=== PATIENT | male | born 1960 | race African-American/Black ===

== ENCOUNTER 2018-04-26 12:48 | Inpatient (IN) | payer SELFPAY ==
[~2018-04-26] VITALS: Ht 175.3 cm; Wt 96.6 kg
[~2018-04-26 12:48] MED LIST: ALLO300T2 PO; ATOR20TA65 PO; FURO40TA5 PO; RANI300C8 PO
[2018-04-26 14:13] LABS: BASOPHILS % 0.7 % (0.0-2.0); EOSINOPHILS % 3.6 % (0.0-5.0); HEMATOCRIT. 47.6 % (42.0-52.0); HEMOGLOBIN. 16.4 g/dL (14.0-18.0); LYMPHOCYTES % 21.9 % (20.0-50.0); MEAN CORPUSCULAR HEMOGLOBIN 32.8 pg (28.0-32.0); MEAN CORPUSCULAR VOLUME 95.2 fL (80.0-94.0); MEAN PLATELET VOLUME 8.7 fl (7.4-10.4); MONOCYTES % 5.8 % (2.0-8.0); PLATELET 156 x1000/uL (130-400); RED BLOOD CELL COUNT 4.99 mill/uL (4.7-6.1); RED CELL DISTRIBUTION WIDTH 14.4 % (11.6-14.6)
[2018-04-26 14:19] LABS: CHLORIDE 108 mEq/L (98-107)
[2018-04-26] MEDS ORDERED: ASPIRIN 81MG TABLET PO ONE (14:30)
[2018-04-26 15:24] LABS: CLARITY URINE CLEAR (CLEAR); COLOR URINE DARK YELLOW (YELLOW); KETONES URINE TRACE (NEGATIVE); LEUKOCYTE ESTERASE URINE NEGATIVE (NEGATIVE); NITRITE URINE NEGATIVE (NEGATIVE); OCCULT BLOOD URINE NEGATIVE (NEGATIVE); PROTEIN URINE NEGATIVE (NEGATIVE); SPECIFIC GRAVITY URINE 1.027 (1.005-1.030)
[2018-04-26 15:25] LABS: PROTHROMBIN TIME 10.5 sec (9.4-11.6)
[2018-04-26 20:00] VITALS: BP 129/75
[2018-04-26 20:17] VITALS: BP 129/75
[2018-04-26] MEDS ORDERED: MAGNESIUM HYDROXIDE 400MG/5ML 30ML UDC PO PRN (20:30)
[2018-04-26] MEDS ORDERED: ACETAMINOPHEN 325MG TABLET PO PRN (20:30)
[2018-04-26] MEDS ORDERED: IPRATROPIUM/ALBUTEROL 0.5-3(2.5)MG/3ML NEB INH PRN (20:30)
[2018-04-26] MEDS ORDERED: MAGNESIUM/ALUMINUM HYDROXIDE/SIMETHICONE 30ML UDC PO PRN (20:30)
[2018-04-26] MEDS ORDERED: REGADENOSON 0.4 MG/5 ML IV SCH (20:30)
[2018-04-26] MEDS ORDERED: ONDANSETRON HCL 4MG/2ML VIAL IV PRN (20:30)
[2018-04-26] MEDS ORDERED: TEMAZEPAM 15MG CAPSULE PO PRN (20:30)
[2018-04-26] MEDS ORDERED: DIPHENHYDRAMINE 50MG/ML VIAL IV PRN (20:30)
[2018-04-26] MEDS: FAMOTIDINE 20MG TABLET PO SCH (21:20)
[2018-04-26] MEDS: SODIUM CHLORIDE 0.9% INJ 3ML FLUSH IVF SCH (21:24)
[2018-04-27] VITALS: BP 138/69
[2018-04-27] MEDS: SODIUM CHLORIDE 0.9% INJ 3ML FLUSH IVF SCH ×2 (04:58→13:19)
[2018-04-27 08:00] VITALS: BP 140/80
[2018-04-27] MEDS ORDERED: REGADENOSON 0.4 MG/5 ML IV ONE (08:37)
[2018-04-27] MEDS ORDERED: ALLOPURINOL 300 MG TABLET PO SCH (09:00)
[2018-04-27] MEDS: FAMOTIDINE 20MG TABLET PO SCH (10:16)
[2018-04-27] MEDS ORDERED: ASPIRIN 81MG EC TABLET PO SCH (11:00)
[2018-04-27] MEDS ORDERED: CLONIDINE 0.2MG TABLET PO PRN (11:00)
[2018-04-27 12:00] VITALS: BP 121/73
[2018-04-27 15:28] VITALS: BP 121/73
== END 2018-04-27 17:00 | disposition home or self-care (01) | DRG 198 ==
LOC: ER 12:48 → EDBEDREQ 14:34 → ENRESERV 16:30 → 5WST 18:33
PROVIDERS: ADMIT Internal Medicine; ATTEND Internal Medicine
DX: R07.89 Other chest pain (principal); I25.10 Atherosclerotic heart disease of native coronary artery without angina pectoris; I10 Essential (primary) hypertension; E78.00 Pure hypercholesterolemia, unspecified; F17.200 Nicotine dependence, unspecified, uncomplicated; M10.9 Gout, unspecified; Z79.899 Other long term (current) drug therapy
CPT/HCPCS: 36415; 71045; 78452; 80053; 81003; 83880; 84484; 85025; 85610; 93005; 93017; 99285; A9500; J2785

== ENCOUNTER 2018-11-07 12:49 | Emergency (ER) | payer MEDICAID ==
[~2018-11-07] VITALS: Ht 172.7 cm; Wt 96.0 kg
[~2018-11-07 12:49] MED LIST changes: -FURO40TA5 PO; -RANI300C8 PO
[2018-11-07] MEDS ORDERED: KETOROLAC 15MG/ML VIAL IM ONE (17:15)
[2018-11-07 19:04] VITALS: BP 124/82
== END 2018-11-07 19:05 | disposition home or self-care (01) ==
LOC: ER 14:01
DX: M54.5 Low back pain (principal); E78.00 Pure hypercholesterolemia, unspecified; I10 Essential (primary) hypertension; F17.200 Nicotine dependence, unspecified, uncomplicated; M85.80 Other specified disorders of bone density and structure, unspecified site; W01.0XXA Fall on same level from slipping, tripping and stumbling without subsequent striking against object, initial encounter; Y93.9 Activity, unspecified; Y92.9 Unspecified place or not applicable
CPT/HCPCS: 72100; 96372; 99283; J1885

== ENCOUNTER 2019-03-15 16:32 | Emergency (ER) | payer MEDICAID ==
[~2019-03-15] VITALS: Ht 167.6 cm; Wt 94.0 kg
[2019-03-15 16:34] VITALS: BP 123/75
== END 2019-03-15 17:15 | disposition home or self-care (01) ==
LOC: ER 16:32
DX: I10 Essential (primary) hypertension (principal); E78.5 Hyperlipidemia, unspecified; E78.00 Pure hypercholesterolemia, unspecified; Z95.0 Presence of cardiac pacemaker; Z98.890 Other specified postprocedural states
CPT/HCPCS: 99291

== ENCOUNTER 2019-08-16 20:41 | Emergency (ER) | payer MEDICAID ==
[~2019-08-16] VITALS: Ht 172.7 cm; Wt 96.0 kg
[2019-08-16 22:20] LABS: BASOPHILS % 0.9 % (0.0-2.0); EOSINOPHILS % 5.3 % (0.0-5.0); HEMATOCRIT. 46.8 % (42.0-52.0); HEMOGLOBIN. 16.1 g/dL (14.0-18.0); LYMPHOCYTES % 27.2 % (20.0-50.0); MEAN CORPUSCULAR HEMOGLOBIN 32.3 pg (28.0-32.0); MEAN CORPUSCULAR VOLUME 94.1 fL (80.0-94.0); MONOCYTES % 8.1 % (2.0-8.0); NEUTROPHILS % 58.5 % (40.0-76.0); PLATELET 157 x1000/uL (130-400); RED BLOOD CELL COUNT 4.97 mill/uL (4.7-6.1); RED CELL DISTRIBUTION WIDTH 14.9 % (11.6-14.6)
[2019-08-16 22:21] LABS: CHLORIDE 107 mEq/L (98-107)
[2019-08-16] MEDS ORDERED: NITROGLYCERIN 0.4MG TABLET SL SL ONE (22:30)
[2019-08-16] MEDS ORDERED: ASPIRIN 325MG EC TABLET PO ONE (22:30)
[2019-08-17 01:05] VITALS: BP 118/74
== END 2019-08-17 01:49 | disposition home or self-care (01) ==
LOC: ER 20:41
DX: R07.9 Chest pain, unspecified (principal); I10 Essential (primary) hypertension; I11.9 Hypertensive heart disease without heart failure; M10.9 Gout, unspecified; F17.200 Nicotine dependence, unspecified, uncomplicated; Z95.0 Presence of cardiac pacemaker; Z86.73 Personal history of transient ischemic attack (TIA), and cerebral infarction without residual deficits; Z98.62 Peripheral vascular angioplasty status
CPT/HCPCS: 36415; 71045; 84484; 93005; 99284; 99406

== ENCOUNTER 2020-09-06 16:19 | Emergency (ER) | payer MEDICAID ==
[~2020-09-06] VITALS: Ht 167.6 cm; Wt 90.0 kg
[2020-09-06] MEDS ORDERED: MORPHINE SULFATE 4 MG/ML CPJ (NOT FOR IM USE) IV STA (17:40)
[2020-09-06] MEDS ORDERED: SODIUM CHLORIDE 0.9% 1,000 ML IV ONE (17:45)
[2020-09-06 18:22] LABS: BASOPHILS % 0.6 % (0.0-2.0); EOSINOPHILS % 5.3 % (0.0-5.0); HEMATOCRIT. 47.4 % (42.0-52.0); HEMOGLOBIN. 16.1 g/dL (14.0-18.0); LYMPHOCYTES % 22.5 % (20.0-50.0); MEAN CORPUSCULAR HEMOGLOBIN 32.4 pg (28.0-32.0); MEAN CORPUSCULAR VOLUME 95.1 fL (80.0-94.0); MEAN PLATELET VOLUME 8.7 fl (7.4-10.4); MONOCYTES % 6.9 % (2.0-8.0); NEUTROPHILS % 64.7 % (40.0-76.0); PLATELET 147 x1000/uL (130-400); RED BLOOD CELL COUNT 4.98 mill/uL (4.7-6.1); RED CELL DISTRIBUTION WIDTH 14.1 % (11.6-14.6)
[2020-09-06 18:27] LABS: CHLORIDE 105 mEq/L (98-107)
[2020-09-06 20:01] VITALS: BP 165/57
== END 2020-09-06 21:35 | disposition home or self-care (01) ==
LOC: ER 16:19
DX: R51.9 Headache, unspecified (principal); R11.0 Nausea; I11.9 Hypertensive heart disease without heart failure; E78.00 Pure hypercholesterolemia, unspecified; M54.9 Dorsalgia, unspecified; Z79.899 Other long term (current) drug therapy; Z95.0 Presence of cardiac pacemaker
CPT/HCPCS: 36415; 70450; 80053; 85025; 93005; 96360; 99285; J7030

== ENCOUNTER 2021-05-09 16:36 | Emergency (ER) | payer MEDICAID ==
[~2021-05-09] VITALS: Ht 167.6 cm; Wt 90.0 kg
[2021-05-09] MEDS ORDERED: ONDANSETRON HCL 4MG/2ML INJ IV STA (21:43)
[2021-05-09] MEDS ORDERED: KETOROLAC 30MG/ML VIAL IV STA (21:43)
[2021-05-09] MEDS ORDERED: SODIUM CHLORIDE 0.9% 1,000 ML IV ONE (21:45)
[2021-05-09 22:15] LABS: BASOPHILS % 0.8 % (0.0-2.0); EOSINOPHILS % 4.3 % (0.0-5.0); HEMATOCRIT. 48.1 % (42.0-52.0); HEMOGLOBIN. 16.8 g/dL (14.0-18.0); LYMPHOCYTES % 26.4 % (20.0-50.0); MEAN CORPUSCULAR HEMOGLOBIN 32.9 pg (28.0-32.0); MEAN CORPUSCULAR VOLUME 94.3 fL (80.0-94.0); MEAN PLATELET VOLUME 8.6 fl (7.4-10.4); MONOCYTES % 7.8 % (2.0-8.0); NEUTROPHILS % 60.7 % (40.0-76.0); PLATELET 183 x1000/uL (130-400); RED CELL DISTRIBUTION WIDTH 14.5 % (11.6-14.6)
[2021-05-09 22:21] LABS: CHLORIDE 109 mEq/L (98-107)
[2021-05-09 23:43] LABS: CLARITY URINE CLEAR (CLEAR); COLOR URINE YELLOW (YELLOW); KETONES URINE NEGATIVE (NEGATIVE); LEUKOCYTE ESTERASE URINE NEGATIVE (NEGATIVE); NITRITE URINE NEGATIVE (NEGATIVE); OCCULT BLOOD URINE NEGATIVE (NEGATIVE); PROTEIN URINE NEGATIVE (NEGATIVE); SPECIFIC GRAVITY URINE 1.012 (1.005-1.030)
[2021-05-10] MEDS ORDERED: IBUP-2028 MT (01:29)
[2021-05-10 01:30] VITALS: BP 117/63
== END 2021-05-10 01:45 | disposition home or self-care (01) ==
LOC: ER 16:40
DX: R10.13 Epigastric pain (principal); I11.9 Hypertensive heart disease without heart failure; E78.00 Pure hypercholesterolemia, unspecified; Z95.0 Presence of cardiac pacemaker
CPT/HCPCS: 36415; 74176; 80053; 81003; 83690; 85025; 93005; 96361; 96374; 96375; 99285; J1885; J2405; J7030

== ENCOUNTER 2021-12-13 20:06 | Emergency (ER) | payer MEDICAID ==
[~2021-12-13] VITALS: Ht 167.6 cm; Wt 100.0 kg
[~2021-12-13 20:06] MED LIST changes: +IBUP-2028 MT
[2021-12-13 20:54] VITALS: BP 147/71
[2021-12-13] MEDS ORDERED: IBUPROFEN 600MG TABLET PO ONE (23:30)
[2021-12-14 00:41] LABS: BASOPHILS % 0.7 % (0.0-2.0); EOSINOPHILS % 3.7 % (0.0-5.0); HEMATOCRIT. 46.8 % (42.0-52.0); HEMOGLOBIN. 15.9 g/dL (14.0-18.0); LYMPHOCYTES % 24.5 % (20.0-50.0); MEAN CORPUSCULAR HEMOGLOBIN 32.5 pg (28.0-32.0); MEAN CORPUSCULAR VOLUME 95.4 fL (80.0-94.0); MONOCYTES % 11.6 % (2.0-8.0); NEUTROPHILS % 59.5 % (40.0-76.0); PLATELET 157 x1000/uL (130-400); RED CELL DISTRIBUTION WIDTH 14.9 % (11.6-14.6)
[2021-12-14 00:57] LABS: CHLORIDE 104 mEq/L (98-107)
[2021-12-14] MEDS ORDERED: IBUP-2028 MT (03:36)
[2021-12-14] MEDS ORDERED: BACL-141 MT (03:36)
== END 2021-12-14 03:37 | disposition home or self-care (01) ==
LOC: ER 20:06
DX: M54.50 Low back pain, unspecified (principal); E78.00 Pure hypercholesterolemia, unspecified; I10 Essential (primary) hypertension; Z95.0 Presence of cardiac pacemaker
CPT/HCPCS: 36415; 71045; 74176; 80053; 85025; 99285

== ENCOUNTER 2024-03-08 20:55 | Emergency (ER) | payer BC, MEDICAID ==
[~2024-03-08] VITALS: Ht 167.6 cm; Wt 90.0 kg
[~2024-03-08 20:55] MED LIST changes: +BACL-141 MT
[2024-03-08 21:24] VITALS: TEMP 98.1; O2SAT 98
[2024-03-08 21:56] LABS: HEMATOCRIT 47.7 % (42.0-52.0); MEAN CORPUSCULAR HEMOGLOBIN 32.9 pg (28.0-32.0); MEAN CORPUSCULAR HGB CONC 33.6 g/dL (31.0-37.0); MEAN CORPUSCULAR VOLUME 97.9 fL (80.0-94.0); PLATELET 153 x1000/uL (130-400); RED BLOOD CELL COUNT 4.87 mill/uL (4.7-6.1); RED CELL DISTRIBUTION WIDTH 15.1 % (11.6-14.6); WHITE BLOOD COUNT 9.1 x1000/uL (4.5-11.0)
[2024-03-08 21:59] LABS: CHLORIDE 103 mEq/L (98-107); POTASSIUM 4.6 mEq/L (3.5-5.1); SODIUM 136 mEq/L (136-145)
[2024-03-08 22:01] LABS: CARBON DIOXIDE 29 mEq/L (21-32)
[2024-03-08 22:05] LABS: CREATININE 0.9 mg/dL (0.6-1.3); GLUCOSE 88 mg/dL (70-105)
[2024-03-08 22:06] LABS: UREA NITROGEN BLOOD 10 mg/dL (9-23)
[2024-03-08 23:58] VITALS: RESP 15
[2024-03-08] MEDS: KETOROLAC 15MG/ML VIAL IM ONE (23:58)
[2024-03-09 00:29] VITALS: BP 157/79; PULSE 62
[2024-03-09] MEDS: MORPHINE SULFATE 2 MG/ML CPJ (NOT FOR IM USE) IV ONE (00:29)
[2024-03-09] MEDS ORDERED: IOHEXOL-300 100 ML BOTTLE ONE (00:59)
[2024-03-09] MEDS ORDERED: IBUP-2028 MT (01:21)
[2024-03-09] MEDS ORDERED: LIDO700A15 TP (01:21)
[2024-03-09] MEDS ORDERED: ACET-2708 MT (01:21)
[2024-03-10] MEDS ORDERED: ROCURONIUM BROMIDE 10MG/ML VIAL 5ML IV ONE (10:53)
[2024-03-10] MEDS ORDERED: FENTANYL CITRATE/PF 50MCG/ML 2ML VIAL ONE (10:53)
[2024-03-10] MEDS ORDERED: MIDAZOLAM HCL 2 MG/2 ML VIAL ONE (10:53)
[2024-03-10] MEDS ORDERED: PROPOFOL 200MG/20ML VIAL IV ONE (10:53)
[2024-03-10] MEDS ORDERED: HYDROMORPHONE HCL/PF 2MG/ML CPJ ONE (13:20)
[2024-03-10] MEDS ORDERED: NEOSTIGMINE METHYLSULFATE 1MG/ML 10 ML VIAL ONE (13:22)
[2024-03-10] MEDS ORDERED: GLYCOPYRROLATE 0.2 MG/ML 2ML VIAL ONE (13:23)
== END 2024-03-09 01:43 | disposition left against medical advice (07) ==
LOC: ER 20:55
DX: R58 Hemorrhage, not elsewhere classified (principal); R10.9 Unspecified abdominal pain; E78.00 Pure hypercholesterolemia, unspecified; I10 Essential (primary) hypertension; Z95.0 Presence of cardiac pacemaker
CPT/HCPCS: 80048; 85027; 36415; 74177; 96372; 99285; 96374; J1885; Z7610 ×2; J3010; Q9967; J3490 ×2; J2250; J2710; J1170; J2270; J2704